=== PATIENT | male | born 2000 | race Caucasian/White ===

== ENCOUNTER 2023-11-23 09:05 | Day surgery (SDC) | payer OTHER, SELFPAY ==
[2023-11-21 12:28] VITALS: BMI 29.1
[2023-11-23] VITALS (7 sets, daily range): BP systolic 131–161; BP diastolic 79–94; PULSE 72–90; RESP 10–18; TEMP 36.3–36.6; O2SAT 94–100; BMI 27.3
[2023-11-23] MEDS: LACTATED RINGERS 1,000 ML 42 ML IV (12:06)
--- NOTE | 2023-11-23 12:49 | SUR.OPER ---
Supine on padded OR bed, head on pillow, arms secured on padded arm boards at <90 degrees abduction, legs uncrossed, safety belt at thigh, tape over blanket over lower legs.
--- NOTE | 2023-11-23 13:01 | PM.PREOP ---
Pre-operative Note Interval Note History & Physical reviewed/Exam performed by Physician: Yes Changes to H&P: No
[2023-11-23] MEDS: BUPIVACAINE 0.25% (PF) 30 ML, EPINEPHrine 0.15 MG INJ (13:38)
[2023-11-23] MEDS: ONDANSETRON 4 MG/2 ML INJ IV (14:39)
[2023-11-23] MEDS: OXYCODONE IR 5 MG TABLET PO (14:42)
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
[2023-11-23] MEDS: hydrOXYzine 50 MG/ML INJ 25 MG IM (15:13)
== END 2023-11-23 15:18 | disposition home or self-care (01) ==
PROVIDERS: PCP Nurse Practitioner Primary Care; Referring Provider Nurse Practitioner Primary Care; Visit Provider Orthopaedic Surgery Foot and Ankle Surgery
PROC: (CPT 26410; principal; 2023-11-23 11:30)
DX: S66.821A Laceration of other specified muscles, fascia and tendons at wrist and hand level, right hand, initial encounter (principal); S61.411A Laceration without foreign body of right hand, initial encounter; I10 Essential (primary) hypertension; R00.0 Tachycardia, unspecified; X58.XXXA Exposure to other specified factors, initial encounter
CPT/HCPCS: 26410; J0171; J1170; J2250; J2405; J2704; J3010; J3410